=== PATIENT | female | born 1965 | race Caucasian/White ===

== ENCOUNTER → 2017-08-28 | Outpatient (CLI) | payer BC ==
--- NOTE | 2017-08-28 13:16 | Diagnostic Imaging Report ---
Right knee MRI without contrast. History: Knee pain. Osteoarthritis. Lateral meniscus tear. Comparison: None. Technique: Multiplanar multi-sequence MRI of the knee without contrast. Findings: Medial compartment: Degeneration and fraying of the meniscus. No meniscal tear. The medial compartmental articular cartilage surfaces are thinned with regions of fraying and fissuring. There are small peripheral marginal osteophytes. The medial collateral complex is intact. Lateral compartment: Degeneration and fraying of the meniscus. No meniscal tear. The lateral compartmental articular cartilage surfaces are thinned with regions of fraying and fissuring. There are small peripheral marginal osteophytes. The lateral collateral complex is intact. Intercondylar notch: The ACL and PCL are intact. Patellofemoral compartment: Articular cartilage fraying and deep fissuring in the patellofemoral compartment with underlying bone marrow edema. Extensor mechanism: Mild proximal patellar tendinosis. The quadriceps and patellar tendons are otherwise normal. Other findings: There is a joint effusion and synovitis. There is no acute fracture, subluxation or avascular necrosis. 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 There is articular cartilage fraying and deep fissuring in the patellofemoral compartment with underlying bone marrow edema. Mild proximal patellar tendinosis without tear. No meniscal tear, collateral ligament tear or cruciate ligament tear. Signed by: Dr. Mark Dougherty M.D. on 08/28/2017 1:12 PM
== END ==
LOC: MRI 10:40
PROVIDERS: ATTEND Specialist
DX: M17.11 Unilateral primary osteoarthritis, right knee (principal)

== ENCOUNTER → 2017-11-27 | Outpatient (RCR) | payer BC | LOC: PT 09:01 | PROVIDERS: ATTEND Specialist | DX: M76.61 Achilles tendinitis, right leg (principal); M25.671 Stiffness of right ankle, not elsewhere classified; M62.81 Muscle weakness (generalized); R26.2 Difficulty in walking, not elsewhere classified ==

== ENCOUNTER 2017-12-26 07:00 | Outpatient (RCR) | payer BC | END 2017-12-27 | LOC: PT 07:00 | PROVIDERS: ATTEND Specialist | DX: M76.61 Achilles tendinitis, right leg (principal); M25.671 Stiffness of right ankle, not elsewhere classified; M62.81 Muscle weakness (generalized); R26.2 Difficulty in walking, not elsewhere classified | CPT/HCPCS: 97139 ==

== ENCOUNTER 2018-10-04 09:28 | Emergency (ER) | payer BC ==
[~2018-10-04] VITALS: Ht 165.1 cm; Wt 128.8 kg
--- OUTSIDE RECORDS SUMMARY | 2018-10-04 09:31 | XMS REPORT ---
Author Author [facility] Address Unknown Phone Unavailable Care Team Providers Care Merchandise Flow Associate Name Role Phone NATALY CABRALES Unavailable Unavailable Problems This patient has no known problems. Allergies, Adverse Reactions, Alerts This patient has no known allergies or adverse reactions. Medications This patient has no known medications. Results Test Description Test Time Test Comments Text Results Atomic Results Result Comments MRI RIGHT KNEE WO [place] [id number] [place] [id number] Patient Name: MILVIA MELO MR #: [id number] : 1965 Age/Sex: 52/F Req #: [id number] Adm Physician: Ordered by: NATALY CABRALES MD Report #: [id number] Location: MRI Room/Bed: Procedure: [id number] MRI/MRI RIGHT KNEE WO Exam Date: Exam Time: REPORT STATUS: Signed Right knee MRI without contrast. History: Knee pain. Osteoarthritis. Lateral meniscus tear. Comparison: None. Technique: Multiplanar multi- sequence MRI of the knee without contrast. Findings: Medial compartment: Degeneration and fraying of the meniscus. No meniscal tear. The medial compartmental articular cartilage surfaces are thinned with regions of fraying and fissuring. There are small peripheral marginal osteophytes. The medial collateral complex is intact. Lateral compartment: Degeneration and fraying of the meniscus. No meniscal tear. The lateral compartmental articular cartilage surfaces are thinned with regions of fraying and fissuring. There are small peripheral marginal osteophytes. The lateral collateral complex is intact. Intercondylar notch: The ACL and PCL are intact. Patellofe moral compartment: Articular cartilage fraying and deep fissuring in the patellofemoral compartment with underlying bone marrow edema. Extensor mechanism: Mild proximal patellar tendinosis. The quadriceps and patellar tendons are otherwise normal. Other findings: There is a joint effusion and synovitis. There is no acute fracture, subluxation or avascular necrosis. 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 There is articular cartilage fraying and deep fissuring in the patellofemoral compartment with underlying bone marrow edema. Mild proximal patellar tendinosis without tear. No meniscal tear, collateral ligament tear or cruciate ligament tear. Signed by: Dr. Mark Dougherty M.D. on 08/28/2017 1:12 PM Dictated By: MARK DOUGHERTY MD, MD [id number] Transcribed By: BARTOLO on 08/28/17 1312 COPY TO: NATALY CABRALES MD
[2018-10-04] MEDS ORDERED: ALBUTEROL/IPRATROPIUM 3 ML NEB NEB ONE (10:00)
--- NOTE | 2018-10-04 10:28 | Diagnostic Imaging Report ---
Frontal and lateral views of the chest. HISTORY: Shortness of breath, diagnosed with bronchitis several months ago COMPARISON: None available. DISCUSSION: Lungs: Prominence of the peribronchial interstitial markings. No evidence of a consolidative pneumonia or pulmonary alveolar edema. Pleura: No pleural effusion or pneumothorax. Heart and mediastinum: The cardiomediastinal silhouette appears unremarkable. Bones and soft tissues: Appear unremarkable. IMPRESSION: 1. Findings compatible with a nonspecific bronchitis. In the setting of persistent bronchitis, consider asthma/chronic bronchitis. 2. No consolidative pneumonia. Signed by: Dr. Corky Moralez D.O., M.M.M. on 10/04/2018 10:25 AM
== END 2018-10-04 11:05 | disposition home or self-care (01) ==
LOC: ER 09:28
DX: R05 Cough (principal); J30.2 Other seasonal allergic rhinitis; J30.1 Allergic rhinitis due to pollen
CPT/HCPCS: 71046; 94640; 99283

== ENCOUNTER 2022-12-22 18:16 | Emergency (ER) | payer BC, OTHER ==
[~2022-12-22] VITALS: Ht 165.1 cm; Wt 113.4 kg
[2022-12-22] MEDS ORDERED: KETOROLAC TROMETHAMINE 60 MG/2 ML VIAL IM ONE (18:45)
[2022-12-22] MEDS ORDERED: ORPHENADRINE CITRATE 30 MG/ML VIAL IM ONE (18:45)
[2022-12-22] MEDS ORDERED: ORPHENADRINE C100 MG PO (19:37)
[2022-12-22] MEDS ORDERED: NAPROSYN500 MG PO (19:37)
[2022-12-22 19:44] VITALS: BP 144/86; PULSE 87; RESP 16; TEMP 98.8; O2SAT 100
== END 2022-12-22 19:43 | disposition home or self-care (01) ==
LOC: ER 18:26
DX: M54.32 Sciatica, left side (principal); I10 Essential (primary) hypertension
CPT/HCPCS: 99282; J1885; J2360